=== PATIENT | male | born 1965 | race Caucasian/White ===

== ENCOUNTER 2017-07-16 08:17 | Emergency (ER) | payer SELFPAY ==
[~2017-07-16] VITALS: Ht 177.8 cm; Wt 113.4 kg
[~2017-07-16 08:17] MED LIST: ACET500 PO; AZIT250 PO; CYCL10 PO; DEXA4 PO; HYDACE5; HYDMOR4 PO; IBUP800 PO; Keflex500 MG PO; LEVFLO500 PO; META800 PO; NYQUIL; Norco 5-325 Ta1 EACH PO; PROCODE120 PO; PSEU120ER PO; Prednisone20 MG PO; Ultram50 MG PO; VALD20 PO
[2017-07-16 10:09] LABS: BASOPHILS ABSOLUTE AUTO 0.01 K/mm3 (0.00-0.23); BASOPHILS PERCENT AUTO 0 % (0-2); EOSINOPHILS ABSOLUTE AUTO 0.15 K/mm3 (0.00-0.68); EOSINOPHILS PERCENT AUTO 2 % (0-6); Hematocrit 42.1 % (37.0-53.0); IMMATURE GRAN ABSOLUTE AUTO 0.01 K/mm3 (0.00-0.10); IMMATURE GRAN PERCENT AUTO 0 % (0-1); LYMPHOCYTES ABSOLUTE AUTO 2.62 K/mm3 (0.84-5.20); LYMPHOCYTES PERCENT AUTO 37 % (21-46); MONOCYTES ABSOLUTE AUTO 0.47 K/mm3 (0.16-1.47); MONOCYTES PERCENT AUTO 7 % (4-13); Mean Corpuscular HGB 30.2 pg (26.0-34.0); Mean Corpuscular HGB Conc 33.3 g/dL (31.5-36.5); Mean Corpuscular Volume 91 fL (80-100); Mean Platelet Volume 10.5 fL (9.1-12.4); NEUTROPHILS ABSOLUTE AUTO 3.79 K/mm3 (1.96-9.15); NEUTROPHILS PERCENT AUTO 54 % (41-73); Platelet Count 231 K/mm3 (150-400); RDW Coefficient Variation 13.3 % (11.7-14.2); RDW Standard Deviation 44.5 fL (35.1-46.3); Red Blood Cell Count 4.64 M/mm3 (4.30-5.90); White Blood Cell Count 7.05 K/mm3 (4.00-11.30)
[2017-07-16 10:33] LABS: Source, Urine Voided
[2017-07-16 10:40] LABS: Alanine Aminotransfer (ALT/SGP 32 U/L (12-78); Albumin, Blood 3.6 g/dL (3.4-5.0); Albumin/Globulin Ratio 0.9 (0.8-1.8); Alk Phos 72 U/L (50-136); Anion Gap 4 mmol/L (6-16); Aspartate Aminotrans (AST/SGOT 21 U/L (12-37); Bilirubin, Total 0.3 mg/dL (0.1-1.0); Blood Urea Nitrogen 17 mg/dL (8-24); Bun/Creatinine Ratio 17.2 (12.0-20.0); CO2, Blood 28 mmol/L (21-32); Calcium, Blood 8.6 mg/dL (8.5-10.1); Chloride, Blood 107 mmol/L (98-108); Creatinine, Blood 0.99 mg/dL (0.60-1.20); Globulin, Blood 4.2 g/dL (2.2-4.0); Glomerular Filtration Rate >60 (60-); Glucose, Blood 116 mg/dL (70-99); Potassium, Blood 4.3 mmol/L (3.5-5.5); Sodium, Blood 139 mmol/L (136-145); Total Protein, Blood 7.8 g/dL (6.4-8.2)
[2017-07-16 10:44] LABS: Bilirubin, Urine Neg (Neg); Blood, Urine 2+ (Neg); Glucose Qualitative, Urine Neg (Neg); Ketones, Urine Neg (Neg); Leukocyte Esterase, Urine 3+ (Neg); Nitrite, Urine Neg (Neg); Protein, Urine Neg (Neg); Specific Gravity, Urine 1.015 (1.003-1.022); Urobilinogen, Urine NORM (Normal)
[2017-07-16 10:57] LABS: Appearance, Urine Hazy (Clear); Color, Urine Yellow (P-Yellow)
[2017-07-16 11:07] LABS: Bacteria Mod /hpf; Squamous Epithelial Cells Mod /hpf (Few); White Blood Cells, Urine TNTC /hpf (0-5)
[2017-07-16] MEDS ORDERED: Amoxicillin500 MG PO (11:46)
[2017-07-16] MEDS ORDERED: Percocet 5-3251 EACH PO (11:46)
[2017-07-16] MEDS ORDERED: IBUP600 PO (11:46)
[2018-02-03] MEDS ORDERED: CYCL10 PO (09:41)
[2018-02-03] MEDS ORDERED: Percocet 10-321 EACH PO (09:41)
[2018-05-31] MEDS ORDERED: CYCL10 PO (06:38)
[2018-05-31] MEDS ORDERED: Prednisone20 MG PO (06:38)
[2018-05-31] MEDS ORDERED: Percocet 5-3251 EACH PO (06:38)
== END 2017-07-16 12:35 | disposition home or self-care (01) ==
LOC: ER 08:17
PROVIDERS: Emergency Medicine
DX: N39.0 Urinary tract infection, site not specified (principal); M51.36 Other intervertebral disc degeneration, lumbar region; F17.200 Nicotine dependence, unspecified, uncomplicated; Z98.890 Other specified postprocedural states
CPT/HCPCS: 36415; 74177; 80053; 81001; 85025; 87086; 96365; 96374; 96375; 96376; 99284; J0696; J1170; J2405; J7030; Q9967

== ENCOUNTER 2017-12-30 12:23 | Emergency (ER) | payer SELFPAY ==
[~2017-12-30] VITALS: Ht 177.8 cm; Wt 117.9 kg
[~2017-12-30 12:23] MED LIST changes: +Amoxicillin500 MG PO; +IBUP600 PO; +Percocet 5-3251 EACH PO
[2017-12-30] MEDS ORDERED: METPRE4DP PO (13:04)
[2017-12-30] MEDS ORDERED: Percocet 5-3251 EACH PO (13:04)
[2017-12-30] MEDS ORDERED: KETO10 PO (13:04)
[2017-12-30] MEDS ORDERED: CYCL10 PO (13:04)
== END 2017-12-30 13:17 | disposition home or self-care (01) ==
LOC: ER 12:23
DX: G89.29 Other chronic pain (principal); M54.5 Low back pain; Z79.899 Other long term (current) drug therapy; F17.210 Nicotine dependence, cigarettes, uncomplicated
CPT/HCPCS: 96372; 99283; J1885; J3010

== ENCOUNTER 2018-01-19 10:11 | Emergency (ER) | payer OTHER ==
[~2018-01-19] VITALS: Ht 177.8 cm; Wt 117.9 kg
[~2018-01-19 10:11] MED LIST changes: +KETO10 PO; +METPRE4DP PO
[2018-01-19] MEDS ORDERED: Norco 10-325 T1 EACH PO (13:01)
[2018-01-19] MEDS ORDERED: DIAZ10 PO (13:01)
== END 2018-01-19 13:27 | disposition home or self-care (01) ==
LOC: ER 10:11
DX: M51.16 Intervertebral disc disorders with radiculopathy, lumbar region (principal); M47.27 Other spondylosis with radiculopathy, lumbosacral region; M47.26 Other spondylosis with radiculopathy, lumbar region; M99.83 Other biomechanical lesions of lumbar region; F17.210 Nicotine dependence, cigarettes, uncomplicated
CPT/HCPCS: 72148; 99283

== ENCOUNTER 2018-02-19 14:00 | Emergency (ER) | payer OTHER ==
[~2018-02-19] VITALS: Ht 177.8 cm; Wt 124.7 kg
[~2018-02-19 14:00] MED LIST changes: +DIAZ10 PO; +Norco 10-325 T1 EACH PO; +Percocet 10-321 EACH PO
[2018-02-19] MEDS ORDERED: Percocet 5-3251 EACH PO (15:46)
[2018-02-19] MEDS ORDERED: NAPR550 PO (15:46)
== END 2018-02-19 15:55 | disposition home or self-care (01) ==
LOC: ER 14:00
DX: M51.16 Intervertebral disc disorders with radiculopathy, lumbar region (principal); F17.210 Nicotine dependence, cigarettes, uncomplicated
CPT/HCPCS: 36415; 72100; 96374; 96375; 99283-25; J1885; J3010

== ENCOUNTER 2018-10-02 05:22 | Inpatient (IN) | payer OTHER ==
[~2018-10-02] VITALS: Ht 177.8 cm; Wt 120.2 kg
[~2018-10-02 05:22] MED LIST changes: +NAPR550 PO
[2018-10-02 05:58] LABS: Source, Urine Clean Catch
[2018-10-02 06:09] LABS: Bilirubin, Urine Neg (Neg); Blood, Urine 2+ (Neg); Glucose Qualitative, Urine Neg (Neg); Ketones, Urine Neg (Neg); Leukocyte Esterase, Urine 3+ (Neg); Nitrite, Urine Neg (Neg); Protein, Urine 2+ (Neg); Urobilinogen, Urine NORM (Normal)
[2018-10-02 06:11] LABS: Appearance, Urine Clear (Clear); Color, Urine Yellow (P-Yellow)
[2018-10-02 06:15] LABS: Bacteria Rare /hpf; Red Blood Cells, Urine 25-50 /hpf (0-2); Squamous Epithelial Cells Rare /hpf (Few); White Blood Cells, Urine 25-50 /hpf (0-5)
[2018-10-02 06:20] LABS: BASOPHILS ABSOLUTE AUTO 0.02 K/mm3 (0.00-0.23); BASOPHILS PERCENT AUTO 0 % (0-2); EOSINOPHILS ABSOLUTE AUTO 0.07 K/mm3 (0.00-0.68); EOSINOPHILS PERCENT AUTO 1 % (0-6); Hematocrit 39.7 % (37.0-53.0); Hemoglobin 13.2 g/dL (13.5-17.5); IMMATURE GRAN ABSOLUTE AUTO 0.04 K/mm3 (0.00-0.10); IMMATURE GRAN PERCENT AUTO 0 % (0-1); LYMPHOCYTES ABSOLUTE AUTO 0.96 K/mm3 (0.84-5.20); LYMPHOCYTES PERCENT AUTO 8 % (21-46); MONOCYTES ABSOLUTE AUTO 0.52 K/mm3 (0.16-1.47); MONOCYTES PERCENT AUTO 4 % (4-13); Mean Corpuscular HGB 30.3 pg (26.0-34.0); Mean Corpuscular HGB Conc 33.2 g/dL (31.5-36.5); Mean Corpuscular Volume 91 fL (80-100); Mean Platelet Volume 10.7 fL (9.1-12.4); NEUTROPHILS ABSOLUTE AUTO 10.37 K/mm3 (1.96-9.15); NEUTROPHILS PERCENT AUTO 87 % (41-73); Platelet Count 189 K/mm3 (150-400); RDW Coefficient Variation 12.8 % (11.7-14.2); RDW Standard Deviation 42.6 fL (35.1-46.3); Red Blood Cell Count 4.36 M/mm3 (4.30-5.90); White Blood Cell Count 11.98 K/mm3 (4.00-11.30)
[2018-10-02 06:42] LABS: Alanine Aminotransfer (ALT/SGP 30 U/L (12-78); Albumin, Blood 3.6 g/dL (3.4-5.0); Alk Phos 71 U/L (50-136); Anion Gap 9 mmol/L (6-16); Aspartate Aminotrans (AST/SGOT 20 U/L (12-37); Bilirubin, Total 0.6 mg/dL (0.1-1.0); Blood Urea Nitrogen 18 mg/dL (8-24); Bun/Creatinine Ratio 17.5 (12.0-20.0); CO2, Blood 23 mmol/L (21-32); Calcium, Blood 8.2 mg/dL (8.5-10.1); Chloride, Blood 104 mmol/L (98-108); Creatinine, Blood 1.03 mg/dL (0.60-1.20); Globulin, Blood 3.6 g/dL (2.2-4.0); Glomerular Filtration Rate >60 (60-); Glucose, Blood 165 mg/dL (70-99); Potassium, Blood 4.2 mmol/L (3.5-5.5); Sodium, Blood 136 mmol/L (136-145); Total Protein, Blood 7.2 g/dL (6.4-8.2)
--- NOTE | 2018-10-03 | NUR ---
RECEIVED HAND OFF FROM Yasmeen PEREZ RN USING SBAR. LYING IN SEMI FOWLERS WITH EYES CLOSED. ORIENTED TO ROOM, CALL SYSTEM, AND POC, VOICES UNDERSTANDING. NOTED THAT HE IS GRUNTING, REFUSES OFFER FOR PAIN MEDS FOR COMFORT. DENIES FURTHER NEEDS AT THIS TIME. SAFETY MEASURES IN PLACE. WILL CONTINUE TO MONITOR.
[2018-10-03 05:33] LABS: BASOPHILS ABSOLUTE AUTO 0.01 K/mm3 (0.00-0.23); BASOPHILS PERCENT AUTO 0 % (0-2); EOSINOPHILS PERCENT AUTO 0 % (0-6); Hematocrit 39.3 % (37.0-53.0); Hemoglobin 13.1 g/dL (13.5-17.5); IMMATURE GRAN ABSOLUTE AUTO 0.04 K/mm3 (0.00-0.10); IMMATURE GRAN PERCENT AUTO 1 % (0-1); LYMPHOCYTES ABSOLUTE AUTO 0.75 K/mm3 (0.84-5.20); LYMPHOCYTES PERCENT AUTO 9 % (21-46); MONOCYTES ABSOLUTE AUTO 0.46 K/mm3 (0.16-1.47); MONOCYTES PERCENT AUTO 5 % (4-13); Mean Corpuscular HGB 29.8 pg (26.0-34.0); Mean Corpuscular HGB Conc 33.3 g/dL (31.5-36.5); Mean Corpuscular Volume 89 fL (80-100); Mean Platelet Volume 11.1 fL (9.1-12.4); NEUTROPHILS ABSOLUTE AUTO 7.31 K/mm3 (1.96-9.15); NEUTROPHILS PERCENT AUTO 85 % (41-73); Platelet Count 157 K/mm3 (150-400); RDW Coefficient Variation 12.9 % (11.7-14.2); RDW Standard Deviation 41.7 fL (35.1-46.3); White Blood Cell Count 8.57 K/mm3 (4.00-11.30)
[2018-10-03 06:04] LABS: Alanine Aminotransfer (ALT/SGP 23 U/L (12-78); Albumin, Blood 3.1 g/dL (3.4-5.0); Albumin/Globulin Ratio 0.9 (0.8-1.8); Alk Phos 67 U/L (50-136); Anion Gap 5 mmol/L (6-16); Aspartate Aminotrans (AST/SGOT 17 U/L (12-37); Bilirubin, Total 0.6 mg/dL (0.1-1.0); Blood Urea Nitrogen 10 mg/dL (8-24); CO2, Blood 26 mmol/L (21-32); Calcium, Blood 7.9 mg/dL (8.5-10.1); Chloride, Blood 105 mmol/L (98-108); Creatinine, Blood 0.91 mg/dL (0.60-1.20); Globulin, Blood 3.6 g/dL (2.2-4.0); Glomerular Filtration Rate >60 (60-); Glucose, Blood 113 mg/dL (70-99); Potassium, Blood 3.9 mmol/L (3.5-5.5); Sodium, Blood 136 mmol/L (136-145); Total Protein, Blood 6.7 g/dL (6.4-8.2)
--- NOTE | 2018-10-03 06:46 | NUR ---
LYING IN SEMI FOWLERS WITH EYES CLOSED. GRUNTING NOTED THIS SHIFT, REFUSES OFFER OF PAIN MEDS FOR COMFORT. DENIES FURTHER NEEDS OR WANTS AT THIS TIME. SAFETY MEASURES IN PLACE. WILL GIVE HAND OFF TO ONCOMING SHIFT USING SBAR.
--- NOTE | 2018-10-03 08:15 | NUR ---
PT SLEEPING WAKES TO VERBAL STIMULI PT REPORTS FLANK/BACK PAIN TO R DISCUSSED MEDS WITH PT AND REASONS WHY HE IS TAKING THEM PT STATED HE HAS BEEN HAVING CHILLS AND SWEATS AND OFF AND ON NAUSEA NO NAUSEA AT THIS TIME
--- NOTE | 2018-10-03 13:00 | NUR ---
PT JUST HAD A SHOWER DR LARSON BY TO SEE PT
--- NOTE | 2018-10-03 15:16 | NUR ---
pt req pain meds 1 tab po utlram given
--- NOTE | 2018-10-03 18:47 | NUR ---
PT AWAKE EATING A POPSICLE
--- NOTE | 2018-10-04 06:24 | NUR ---
SUMMARY NO STONES STRAINED TONIGHT. PT REPORTING ULTRAM EFFECTIVE FOR PAIN CONTROL. DENIES PAIN OR BURNING WITH URINATION.
--- NOTE | 2018-10-04 07:30 | NUR ---
PT SLEEPING WAKES TO VERBAL STIMULI PT STATED STILL HAVING PAIN TO R BACK NO BLOOD IN URINE OR PAIN WITH URINATION
--- NOTE | 2018-10-04 08:49 | NUR ---
DR LARSON BY TO SEE PT
[2018-10-04] MEDS ORDERED: CEFP200 PO (10:09)
--- NOTE | 2018-10-04 10:23 | NUR ---
discharge instructions reviewed with pt verbalized no acute changes amb to car rx called to [facility]
== END 2018-10-04 10:18 | disposition home or self-care (01) | DRG 872 ==
LOC: ER 05:22 → ERHOLD 05:23 → SURS 14:29
PROVIDERS: Emergency Medicine; ADMIT Hospitalist
DX: A41.9 Sepsis, unspecified organism (principal); N39.0 Urinary tract infection, site not specified; R65.20 Severe sepsis without septic shock; N40.0 Benign prostatic hyperplasia without lower urinary tract symptoms; F17.210 Nicotine dependence, cigarettes, uncomplicated; G89.29 Other chronic pain; M54.9 Dorsalgia, unspecified; N20.0 Calculus of kidney; F12.90 Cannabis use, unspecified, uncomplicated; E66.9 Obesity, unspecified; Z88.5 Allergy status to narcotic agent; Z88.8 Allergy status to other drugs, medicaments and biological substances
CPT/HCPCS: 36415; 74176; 80053; 81001; 83605; 85025; 87086; 96361; 96365; 96372-59; 96375; 99285-25; J0696; J1650; J2405; J3010; J7030

== ENCOUNTER 2020-10-12 18:51 | Emergency (ER) | payer OTHER ==
[~2020-10-12] VITALS: Ht 177.8 cm; Wt 136.1 kg
[~2020-10-12 18:51] MED LIST changes: +CEFP200 PO
[2020-10-12 19:45] LABS: BASOPHILS ABSOLUTE AUTO 0.03 K/mm3 (0.00-0.23); BASOPHILS PERCENT AUTO 0 % (0-2); EOSINOPHILS ABSOLUTE AUTO 0.27 K/mm3 (0.00-0.68); EOSINOPHILS PERCENT AUTO 3 % (0-6); Hematocrit 43.1 % (37.0-53.0); IMMATURE GRAN ABSOLUTE AUTO 0.02 K/mm3 (0.00-0.10); IMMATURE GRAN PERCENT AUTO 0 % (0-1); LYMPHOCYTES ABSOLUTE AUTO 2.99 K/mm3 (0.84-5.20); LYMPHOCYTES PERCENT AUTO 32 % (21-46); MONOCYTES ABSOLUTE AUTO 0.81 K/mm3 (0.16-1.47); MONOCYTES PERCENT AUTO 9 % (4-13); Mean Corpuscular HGB 30.2 pg (26.0-34.0); Mean Corpuscular HGB Conc 34.8 g/dL (31.5-36.5); Mean Corpuscular Volume 87 fL (80-100); Mean Platelet Volume 10.8 fL (9.1-12.4); NEUTROPHILS ABSOLUTE AUTO 5.32 K/mm3 (1.96-9.15); NEUTROPHILS PERCENT AUTO 56 % (41-73); Platelet Count 235 K/mm3 (150-400); RDW Coefficient Variation 12.9 % (11.7-14.2); RDW Standard Deviation 40.7 fL (35.1-46.3); Red Blood Cell Count 4.97 M/mm3 (4.30-5.90); White Blood Cell Count 9.44 K/mm3 (4.00-11.30)
[2020-10-12 20:04] LABS: Alanine Aminotransfer (ALT/SGP 39 U/L (12-78); Albumin, Blood 3.8 g/dL (3.4-5.0); Alk Phos 70 U/L (50-136); Anion Gap 6 mmol/L (6-16); Aspartate Aminotrans (AST/SGOT 22 U/L (12-37); Bilirubin, Total 0.3 mg/dL (0.1-1.0); Blood Urea Nitrogen 17 mg/dL (8-24); Bun/Creatinine Ratio 14.7 (12.0-20.0); CO2, Blood 28 mmol/L (21-32); Calcium, Blood 8.6 mg/dL (8.5-10.1); Chloride, Blood 107 mmol/L (98-108); Creatinine, Blood 1.16 mg/dL (0.60-1.20); Globulin, Blood 3.9 g/dL (2.2-4.0); Glomerular Filtration Rate >60 (60-); Glucose, Blood 105 mg/dL (70-99); Sodium, Blood 141 mmol/L (136-145); Total Protein, Blood 7.7 g/dL (6.4-8.2); Troponin I <0.015 ng/mL (0.000-0.040)
== END 2020-10-12 20:58 | disposition home or self-care (01) ==
LOC: ER 18:51
PROVIDERS: Physician Assistant
DX: R07.9 Chest pain, unspecified (principal); F17.210 Nicotine dependence, cigarettes, uncomplicated
CPT/HCPCS: 36415; 71046; 80053; 83880; 84484; 85025; 93005; 93010; 99285-25

== ENCOUNTER 2021-01-06 03:56 | Emergency (ER) | payer OTHER ==
[~2021-01-06] VITALS: Ht 188 cm; Wt 124.7 kg
[2021-01-06 04:22] LABS: BASOPHILS ABSOLUTE AUTO 0.03 K/mm3 (0.00-0.23); BASOPHILS PERCENT AUTO 0 % (0-2); EOSINOPHILS ABSOLUTE AUTO 0.38 K/mm3 (0.00-0.68); EOSINOPHILS PERCENT AUTO 4 % (0-6); Hemoglobin 14.4 g/dL (13.5-17.5); IMMATURE GRAN ABSOLUTE AUTO 0.02 K/mm3 (0.00-0.10); IMMATURE GRAN PERCENT AUTO 0 % (0-1); LYMPHOCYTES PERCENT AUTO 39 % (21-46); MONOCYTES ABSOLUTE AUTO 0.79 K/mm3 (0.16-1.47); MONOCYTES PERCENT AUTO 9 % (4-13); Mean Corpuscular HGB 30.3 pg (26.0-34.0); Mean Corpuscular HGB Conc 34.3 g/dL (31.5-36.5); Mean Corpuscular Volume 88 fL (80-100); Mean Platelet Volume 11.2 fL (9.1-12.4); NEUTROPHILS ABSOLUTE AUTO 4.38 K/mm3 (1.96-9.15); NEUTROPHILS PERCENT AUTO 48 % (41-73); Platelet Count 240 K/mm3 (150-400); RDW Standard Deviation 41.9 fL (35.1-46.3); Red Blood Cell Count 4.76 M/mm3 (4.30-5.90)
[2021-01-06 04:40] LABS: Alanine Aminotransfer (ALT/SGP 33 U/L (12-78); Albumin, Blood 3.7 g/dL (3.4-5.0); Alk Phos 70 U/L (50-136); Anion Gap 8 mmol/L (6-16); Aspartate Aminotrans (AST/SGOT 17 U/L (12-37); Bilirubin, Total 0.3 mg/dL (0.1-1.0); Blood Urea Nitrogen 14 mg/dL (8-24); Bun/Creatinine Ratio 11.3 (12.0-20.0); CO2, Blood 25 mmol/L (21-32); Calcium, Blood 8.7 mg/dL (8.5-10.1); Chloride, Blood 106 mmol/L (98-108); Creatinine, Blood 1.24 mg/dL (0.60-1.20); Ethanol (Alcohol), Blood, Med <3 mg/dL; Globulin, Blood 3.6 g/dL (2.2-4.0); Glomerular Filtration Rate >60 (60-); Glucose, Blood 159 mg/dL (70-99); Potassium, Blood 3.9 mmol/L (3.5-5.5); Sodium, Blood 139 mmol/L (136-145); Total Protein, Blood 7.3 g/dL (6.4-8.2)
[2021-01-06 05:29] LABS: Source, Urine Clean Catch
[2021-01-06 05:34] LABS: Bilirubin, Urine Neg (Neg); Blood, Urine 3+ (Neg); Glucose Qualitative, Urine 1+ (Neg); Ketones, Urine Neg (Neg); Leukocyte Esterase, Urine 3+ (Neg); Nitrite, Urine Neg (Neg); Protein, Urine 1+ (Neg); Urobilinogen, Urine NORM (Normal); pH, Urine 6.5 (5.0-8.0)
[2021-01-06] MEDS ORDERED: Flomax0.4 MG PO (05:40)
[2021-01-06] MEDS ORDERED: HYDR1TAB94 PO (05:40)
[2021-01-06 05:41] LABS: Appearance, Urine Hazy (Clear); Color, Urine Yellow (P-Yellow)
[2021-01-06 05:44] LABS: Bacteria Rare /hpf; Squamous Epithelial Cells Few /hpf (Few); Trichomonas Mod /hpf; White Blood Cells, Urine TNTC /hpf (0-5)
[2021-01-06 05:47] LABS: U Amphetamine Screen DETECTED; U Barbituate Screen Not Detected; U Benzodiazapine Screen Not Detected; U Buprenorphine Screen Not Detected; U Cannabinoids Screen DETECTED; U Cocaine Screen Not Detected; U Methadone Screen Not Detected; U Methamphetamine Screen DETECTED; U Opiates Screen Not Detected; U Oxycodone Screen Not Detected; U Phencyclidine Screen Not Detected; U Propoxyphene Screen Not Detected
== END 2021-01-06 05:57 | disposition home or self-care (01) ==
LOC: ER 03:56
PROVIDERS: Student in an Organized Health Care Education/Training Program
DX: N13.2 Hydronephrosis with renal and ureteral calculous obstruction (principal); F17.210 Nicotine dependence, cigarettes, uncomplicated; Z88.6 Allergy status to analgesic agent; Z88.5 Allergy status to narcotic agent
CPT/HCPCS: 36415; 74177; 80053; 81001; 83690; 85025; 87086; 93005; 93010; 96374-59; 96375; 99284-25; G0480; J1790; J1885; J3010; Q9967